=== PATIENT | female | born 1955 | race Caucasian/White ===

== ENCOUNTER 2017-05-23 13:26 | Emergency (ER) | payer OTHER ==
[~2017-05-23] VITALS: Ht 165.1 cm; Wt 92.1 kg
--- NOTE | ~2017-05-23 | HC ---
[facility] [place] [address] CONSULTATION Name: EMILY PLATA Room #: DEP Juno#: [id number] Admission: 05/23/17 Attend Phys: Discharge: 05/23/17 Date of : 59 Report #: [id number] THIS REPORT FOR: //name// CC: Anna Betts PCP TYPE OF REPORT: Infectious diseases consultation. REASON FOR CONSULTATION: I was asked to evaluate concerning peritonitis, abdominal wall ventral hernia, infection with enterocutaneous fistula. HISTORY OF PRESENT ILLNESS: The patient was a 61-year-old who had previous surgery including hysterectomy and oophorectomy, lap band surgery complicated by ventral hernia and herniorrhaphy with mesh placement. 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 She has had approximately 5 abdominal wall surgeries. Most recent exploratory lap showed that the ventral mesh was infected. This was done in [place], [place]. She was then sent for further evaluation. She presents now for her surgery, which was completed [address] Angela. At that time, she had takedown of the enterocutaneous fistula with segmental small bowel resection and explantation of the mesh. Repair of incarcerated ventral hernia, appendectomy with evidence of appendicitis and reconstruction of her abdominal wall with bioabsorbable mesh. Cultures from her wound at the time of surgery have revealed Pseudomonas aeruginosa. She was treated with ciprofloxacin and metronidazole postoperatively. No fever, chills or sweats. GI function has not returned yet. It is noted that during one of her previous surgeries, she had an incidental appendectomy performed. She is a nonsmoker. Works as a nurse instructor. No HIV risk factors. ALLERGIES: PENICILLIN with hives and CODEINE. MEDICATIONS: As noted on her MAR including ciprofloxacin. FAMILY HISTORY: Noncontributory. SOCIAL HISTORY: As noted above. PAST MEDICAL HISTORY: As noted above including lap band procedure, ventral hernia repair, splenectomy, tonsillectomy, oophorectomy and hysterectomy. REVIEW OF SYSTEMS: She has an NG tube in place. Right upper extremity PICC, two JOSE FRANCISCO drains, Prevena incisional dressing. No dysuria. No stools. She has been ambulatory. PHYSICAL EXAMINATION: VITAL SIGNS: Afebrile and hemodynamically stable, alert and cooperative and pleasant, in no acute distress. She had oxygen at 2 liters. NG tube in place. A Prevena wound incisional VAC in place. Two JOSE FRANCISCO drains in the lower abdomen, [facility] [address] [place] [address] CONSULTATION Name: EMILY PLATA Room #: DEP LEANDRA Fraire#: [id number] Admission: 05/23/17 Attend Phys: Discharge: 05/23/17 Date of : 59 Report #: [id number] serosanguineous output and right upper extremity PICC unremarkable. LUNGS: Clear anteriorly. HEART: Regular, without murmur. ABDOMEN: Soft and mild diffuse tenderness. No mass or hepatomegaly identified. EXTREMITIES: Unremarkable. LABORATORY DATA: Sodium 141, potassium 4.3, bicarbonate 30 and creatinine 0.6. Hemoglobin 11.2; platelet count 312,000; white count 8.7; 71% segs and 17% lymphs. Culture of the wound shows Pseudomonas aeruginosa, intermediate sensitivity to aztreonam with an BLANCHE of 4 to ceftazidime, otherwise susceptible. RADIOLOGICAL DATA: Chest x-ray, basilar atelectasis. IMPRESSION: A 61-year old postoperative day #3 following exploratory laparotomy, extensive lysis of adhesions, debridement of infected fascia and explantation of infected mesh with small bowel resection to take down enterocutaneous fistula with a side to side and reanastomosis, appendectomy, abdominal wall reconstruction. She has Pseudomonas aeruginosa infection involving the mesh. Overall stable postop awaiting bowel function return. Allergies to penicillin and codeine. Asplenic. RECOMMENDATIONS: We will continue with meropenem, give predose Benadryl. Duration of antibiotic therapy anticipated 7-10 days. Once GI function returns, may go back to ciprofloxacin to finish her course of treatment. Continue with rehabilitation efforts. For her asplenia, we would recommend updating her vaccinations as appropriate. Discussed further with the patient closer to discharge. <ELECTRONICALLY SIGNED> By: Juan Shipley MD 05/31/17 1128 04 0950 Juan Shipley MD /nt
[2017-05-23 15:16] LABS: ABSOLUTE NEUTROPHILS 4.5 thou/uL (1.4-8.2); BASOPHILS 1.8 % (0.0-2.0); EOSINOPHILS 1.8 % (0.0-3.0); HEMATOCRIT 37.5 % (37.0-47.0); HEMOGLOBIN 12.5 gm/dL (12.0-15.0); LYMPHOCYTES 29.4 % (24.0-44.0); MCH 29.9 pg (26.0-34.0); MCHC 33.3 g/dL (28.0-37.0); MCV 89.8 fL (80.0-100.0); MONOCYTES 9.6 % (1.0-8.0); PLATELET COUNT 351 thou/uL (150-400); POLYS 57.4 % (36.0-66.0); RBC 4.17 mil/uL (4.20-5.00); RDW 14.2 % (10.5-14.5); WBC 7.8 thou/uL (4.0-11.0)
[2017-05-23 15:23] LABS: CALCIUM 9.4 mg/dL (8.5-10.1); CREATININE 0.7 mg/dL (0.6-1.0); POTASSIUM 4.3 mmol/L (3.5-5.1)
[2017-05-23 15:29] LABS: ALBUMIN 3.5 g/dL (3.4-5.0); DIRECT BILIRUBIN 0.1 mg/dL (<0.1-0.3); TOTAL BILIRUBIN 0.5 mg/dL (<0.1-1.0); TOTAL PROTEIN 7.7 g/dL (6.4-8.2)
[2017-05-23 15:48] LABS: URINE BILIRUBIN NEGATIVE (Negative); URINE BLOOD NEGATIVE (Negative); URINE CLARITY CLEAR; URINE COLOR YELLOW; URINE GLUCOSE-RANDOM* NEGATIVE (Negative); URINE KETONES NEGATIVE (Negative); URINE LEUKOCYTES TRACE (Negative); URINE NITRITE NEGATIVE (Negative); URINE PROTEIN (DIPSTICK) NEGATIVE (Negative); URINE SPECIFIC GRAVITY 1.025 (1.005-1.035); URINE UROBILINOGEN 0.2 E.U./dl (0.2-1.0)
[2017-05-23] MEDS ORDERED: GOLYTELY4000 ML PO (17:43)
[2017-05-23] MEDS ORDERED: ONDANSETRON HCL4 M2 PO (17:43)
[2017-05-23] MEDS ORDERED: LEVSIN0.125 MG PO (17:43)
[2017-05-23 17:53] VITALS: BP 153/81
[2017-05-24] MEDS ORDERED: PREVACID 24HR15 MG PO (10:26)
== END 2017-05-23 17:54 | disposition home or self-care (01) ==
LOC: ER 13:26
PROVIDERS: Emergency Medicine
DX: K59.00 Constipation, unspecified (principal); T85.79XA Infection and inflammatory reaction due to other internal prosthetic devices, implants and grafts, initial encounter; R11.0 Nausea; Z88.0 Allergy status to penicillin; Z88.5 Allergy status to narcotic agent; Z98.890 Other specified postprocedural states; Y84.9 Medical procedure, unspecified as the cause of abnormal reaction of the patient, or of later complication, without mention of misadventure at the time of the procedure; Y92.89 Other specified places as the place of occurrence of the external cause

== ENCOUNTER 2017-05-27 05:14 | Inpatient (IN) | payer OTHER ==
[~2017-05-27] VITALS: Ht 165.1 cm; Wt 92.1 kg
--- NOTE | ~2017-05-27 | S ---
[facility] [place] [address] SURGICAL PATH RPT PROCEDURE Name: LA LUCERO Room #: 443-P ADM IN M.R.#: [id number] Admission: 05/28/17 Date of : 59 Discharge: Report #: [id number] Path Case #: [id number] PATHOLOGY REPORT COLLECTION DATE: 05/27/2017 RECEIVED DATE: 05/27/2017 SUBMITTING PHYS: Dr. Afia Angela OTHER PHYS: Dr. Hernan Sinclair, SPECIMEN(S) RECEIVED: A.Appendix B.Distal jejunum stitch villalpando fistula C.Infected mesh D.Fistula tract E.Segment abdominal wall * * * * * * * * * * * * FINAL DIAGNOSIS: A. "Appendix", appendectomy" - Appendix with fibrous obliteration, mild acute serositis and periappendicitis with dense fibrous adhesions. B. "Distal jejunum stitch villalpando fistula", resection: - Small bowel mucosa, submucosa and muscular wall with focal serosal and muscular wall disruption and overlying mucosal reactive changes with edema, acute and chronic inflammation, and subserosal fibroblastic proliferation; surgical margins with mild acute serositis. - Lymph nodes (4) with mild hyperplasia. (4 nodes) C. "Infected mesh", removal: - Foreign material consistent with synthetic mesh (gross examination only). D. "Fistula tract", excision: - Skin and subcutaneous tissue with acute and chronic inflammation, necrosis, granulation tissue, fibrosis, fat necrosis, vascular proliferation and pseudoepitheliomatous hyperplasia consistent with fistula tract. E. "Segment abdominal wall", excision: - Fibroadipose connective tissue with fibrosis, fat necrosis, fresh hemorrhage and acute and chronic inflammation. (CLW:pit; 05/29/2017) PATHOLOGIST: Suni Aggarwal M.D. REPORT ELECTRONICALLY SIGNED BY: Suni Aggarwal M.D. DATE/TIME: 05/29/2017 16:47 * * * * * * * * * * * * [address] [address] SURGICAL PATH RPT PROCEDURE Name: LA LUCERO Room #: 443-P [facility].#: [id number] Admission: 05/28/17 Date of : 59 Discharge: Report #: [id number] Path Case #: [id number] GROSS PATHOLOGY: A. Received in formalin labeled "[place] Luc[place], appendix," is an appendix measuring 6.1 cm in length and up to 0.4 cm in diameter with a moderate amount of attached mesoappendix. The serosal surface is pale santa and smooth in appearance. Sectioning reveals a pinpoint lumen. The specimen is submitted entirely in cassettes A1 through A3, with the proximal margin and bisected tip submitted in cassette A1. B. The specimen is received in formalin labeled "[place], distal jejunum, stitch villalpando fistula". Received is an unoriented segment of small bowel measuring 24.6 cm in length and ranging in diameter from 1.6 to 2.4 cm. Both margins are stapled closed. The serosal surface is pink-santa to pink-hannah in appearance with a moderate amount of overlying adhesions. There is a sutured area located 11.8 cm from the closest margin. The surrounding serosal surface is inked black. The attached mesenteric fat measures up to 3.7 cm in thickness. The specimen is opened along the antimesenteric line to reveal light santa mucosa with normal architectural folds. No distinct nodules or lesions are noted grossly. Sectioning through the attached mesenteric fat reveals four readily identifiable lymph nodes ranging in size from 0.2 to 0.4 cm in maximum dimensions. The specimen is submitted representatively as follows: B1-B2 margin and opposite margin B3 entire sutured area B4 claim representative cross-sections of mucosa B5 intact lymph nodes. C. The specimen is received in formalin labeled "[place] Luc[place], infected mesh". Received is a segment of mesh with attached sutures measuring 23.2 x 8.4 x 0.5 cm in greatest dimensions. A gross photograph is taken. Sections are not submitted. D. The specimen is received in formalin labeled "[place], fistula tract". Received are two segments of yellow-santa fibroadipose tissue with attached dusky hannah-santa skin measuring 8.8 x 4.1 x 3.1 cm in aggregate dimensions. The epidermal surface displays a circular defect measuring 0.2 x 0.2 cm, which probes through the depth of the larger segment of tissue, suggestive of a fistula tract. Sectioning through the specimen reveals white-santa to yellow-santa cut surfaces with a slight amount of fat necrosis. A claim representative section through the fistula tract is submitted in cassette D1. E. The specimen is received in formalin labeled "[place], segment of abdominal wall". Received is a segment of yellow-santa fibroadipose tissue with attached pink-hannah fibromembranous tissue measuring 14.8 x 3.0 x 2.2 cm in greatest dimensions. The specimen is submitted representatively in cassette E1. (CAA; 05/28/2017) CLINICAL HISTORY: [facility] [address] [place] [address] SURGICAL PATH RPT PROCEDURE Name: LA LUCERO Room #: 443-P ADM IN M.R.#: [id number] Admission: 05/28/17 Date of : 59 Discharge: Report #: [id number] Path Case #: [id number] Ventral hernia, small bowel fistula INITIAL CPT CODE(S): A; 74892 B; 26723 C; 00731 D; 74586 E; 75916 [facility] [address] [facility] [place] [address] Technical services performed by [facility] at [address] [place] [address], [address] [address]. [facility] [place] [address] PHONE: [phone] DIRECTOR: Gurvinder Benoit M.D. * * * END OF REPORT * * *
--- NOTE | ~2017-05-27 | O ---
[facility] [place] [address] OPERATIVE REPORT Name: EMILY PLATA Room #: 443-P [facility] M.R.#: [id number] Admission: 05/27/17 Attend Phys: Afia Angela MD, Discharge: Date of : 59 Report #: [id number] THIS REPORT FOR: //name// CC: Dr. Nia Angela NO PCP DATE OF SERVICE: 05/27/2017 PREOPERATIVE DIAGNOSES: 1. Nonhealing abdominal wall wound with draining sinus tract. 2. Suspected infected abdominal wall mesh. 3. Questionable recurrent incisional ventral hernia. 4. Obesity with a BMI of 33.98. POSTOPERATIVE DIAGNOSES: 1. Nonhealing abdominal wall wound with draining sinus tract and enterocutaneous fistula. 2. Infected abdominal wall mesh. 3. Necrotic abdominal wall fascia. 4. Incarcerated recurrent incisional ventral hernia. 5. Appendiceal inflammation. 6. Obesity with a BMI of 33.98. PROCEDURES PERFORMED: 1. Exploratory laparotomy. 2. Extensive lysis of adhesions lasting 115 minutes. 3. Debridement of infected fascia with explantation of infected synthetic mesh. 4. Segmental small bowel resection with takedown of enterocutaneous fistula and [id number] functional end-to-end reanastomosis. 5. Appendectomy. 6. Complex abdominal wall reconstruction with open repair of an incarcerated recurrent incisional ventral hernia using bioresorbable mesh (Phasix). 7. Bilateral component separation of the external oblique aponeurosis of the abdominal wall. 8. Adjacent tissue transfer closure of the anterior abdominal wall tissues ultimately measuring 38 x 35 cm in dimension (1330 square cm). 9. Placement of a topical wound VAC device (Prevena). 10. A modifier 22 procedure for extreme difficulty of procedure secondary to the near 2 hour lysis of adhesions, coupled with her obesity and a thick abdominal wall that made retraction and exposure more difficult. In addition, there was an enterocutaneous fistula that required complete explantation of synthetic mesh and complex abdominal wall reconstruction techniques with component separation for a tension-free midline fascial closure that pushed the total operative time to greater than 3-1/2 hours as opposed to the usual [facility] [address] [address] OPERATIVE REPORT Name: EMILY PLATA Room #: 443-P [facility].#: [id number] Admission: 05/27/17 Attend Phys: Afia Angela MD, Discharge: Date of : 59 Report #: [id number] 60-minute open incisional hernia repair with mesh. SURGEON: Afia Angela MD [employer] MANAGER: Hernan Sinclair DO ANESTHESIA: General endotracheal anesthesia. ESTIMATED BLOOD LOSS: 50 mL. COMPLICATIONS: None appreciated. SPECIMENS: 1. Segment of small bowel to pathology with a suture marking fistula site. 2. Appendix to pathology. 3. Infected mesh to pathology. 4. Necrotic fascia to pathology. 5. Skin to pathology. INDICATIONS: The patient is a 61-year-old obese female who has undergone multiple surgical interventions in her past, starting with a hernia repair in 2014 after a bilateral salpingo-oophorectomy. In addition, the patient has had a prior Lap-Band placement with removal and another hernia repair as well as a sigmoidectomy. Most recently, she underwent an open ventral hernia repair with mesh where she had a draining sinus tract, tunneling to the synthetic mesh, which was therefore by definition infected. As she has had a nonhealing post-surgical wound for all this time with a draining sinus, indication was for exploration today with ultimate findings of what appears to be an enterocutaneous fistula from a loop of small bowel to the mesh and out through the draining wound as well as all of the above procedures necessitated as delineated above. DESCRIPTION OF PROCEDURE: After explaining the risks, benefits and alternatives of the procedure with the patient in detail in the preoperative holding area and obtaining written consent, the patient was brought to the operating room and placed supine on the operating room table. After conducting a thorough timeout procedure, verifying correct patient and procedure, the patient was given general endotracheal anesthesia. Once adequate anesthesia was obtained, her SCDs were hooked up to pneumatic compression device and she was given a preoperative dose of antibiotics in line with the SCIP protocol. The patient had a Matta catheter placed and her abdomen was prepped and draped in standard surgical sterile fashion. A #10 bladed scalpel was used to create a longitudinal midline incision from the subxiphoid location down to the suprapubic location, carried to the left of the umbilicus following her prior incision site. An elliptical incision was made around the draining sinus tract at this time. Electrocautery was used to carry these incisions down through [address] [address] OPERATIVE REPORT Name: EMILY PLATA Room #: 443-P [facility] M.RMaricruz#: [id number] Admission: 05/27/17 Attend Phys: Afia Angela MD, Discharge: Date of : 59 Report #: [id number] skin and subcutaneous tissues to ensure hemostasis until I arrived upon the anterior fascia. The fascia was then scored down the midline revealing evidence of incarcerated recurrent incisional hernia at the inferior aspect of the prior placed synthetic mesh. This was containing omentum. I was able to reduce this, place a finger in the abdomen and open the remainder of the incision in a controlled fashion with a finger in the abdomen to prevent injury from thermal spread. Once I had opened the incision inferiorly, attention was turned towards the superior most aspect. The synthetic mesh itself was bisected at this juncture with curved Singh scissors, carried to the left side of the patient's abdominal domain as there was a matted segment of small bowel to the right of midline. Now that I had opened the entirety of the midline wound, we continued to perform an extensive lysis of adhesions to take down all adhesions of small bowel and omentum from the posterior aspect of the anterior abdominal wall. Once I had taken down all these adhesions and freed the bowel, it was apparent that there was a small enterocutaneous fistula where the bowel was tethered to the underside of the synthetic mesh that was gnarled up and was draining through the wound. A single suture of 3-0 PDS was placed in the small bowel at this location from closure to prevent spillage as well as marking. I continued taking down all adhesions of which there were several interloop adhesions that appeared to be near obstructing in nature as the small bowel was twisting and plastered to the pelvis. Care was taken to elevate all of these adhesions without disrupting the colorectal anastomosis. Once I had taken down all adhesions, which took nearly 2 full hours, the small bowel was evaluated and was healthy with the exception of the enterocutaneous fistula site. The appendix coming off of the cecum was long and serpiginous and quite diminutive with the exception of one area that was bulbous and it did appear inflamed with ____ and edema around it. The appendix was elevated and a window was made in the mesoappendix with a hemostat. The ANNEMARIE-75 mm blue load stapler was used to transect the appendix at its base and Rochester clamps were used to elevate the appendix. The EnSeal X1 device was used to transect the mesoappendix for hemostasis. This was passed off the field as specimen. We now made a window on either side of the small bowel at the fistula site through the mesentery with electrocautery. The bowel was transected at each site with another firing of the blue load 75 mm ANNEMARIE stapler. The mesentery was transected with the EnSeal X1 device for hemostasis. The segment of small bowel was passed off the field as specimen. The small bowel loops were now aligned in a [id number] functional end-to-end fashion. A single suture was placed in the antimesenteric aspect to hold them in alignment and the antimesenteric corners of the staple lines were removed with curved Singh scissors. The ANNEMARIE blue load 75 mm stapler was now used to create the anastomosis by passing each limb of the stapler down the 2 enterotomies, clamping and firing to create the anastomosis. The stapler was removed and the common enterotomy was elevated between Allis clamps. A TX blue load 60 stapler was now used to close the common enterotomy and a #10 bladed scalpel was used to remove the excess anastomotic tissue. Finger palpation of the anastomosis showed it to be widely patent. A single suture of 3-0 PDS was placed in the crotch of the staple line to act as an anti-tension [address] [address] OPERATIVE REPORT Name: EMILY PLATA Room #: 443-P [facility] Juno#: [id number] Admission: 05/27/17 Attend Phys: Afia Angela MD, Discharge: Date of : 59 Report #: [id number] stitch. I then closed the mesenteric defect using a running 3-0 PDS in standard fashion as well. I did elect to oversew the TX staple line using several sutures of 3-0 PDS in standard Lembert interrupted fashion. Again, digital finger intubation showed this to be a widely patent anastomosis. The bowel was then placed back in the abdomen and we turned our attention to the abdominal wall. The mesh itself showed chronic infectious changes with slime and discharge of which culture swabs were taken and sent for aerobic, anaerobic and fungal culture and sensitivity. The abdominal wall fascia itself appeared nonviable and ischemic and necrotic as well as infected down the midline. This was in the region of the enterocutaneous fistula. Electrocautery was now used to remove all of the synthetic mesh as well as all synthetic suture material. Once all of the mesh had been removed, the fascia was debrided back to healthy vascularized fascia and the necrotic fascia was passed off the field as specimen as well. Evaluation of the midline wound at this juncture showed difficulty in approximating down the midline and as such, it would necessitate bilateral component separation. There was evidence of the rectus muscle posteriorly as there was denuded posterior fascia throughout. It was not possible to have a preperitoneal repair and as such, I elected to do an external oblique release with an onlay for definitive repair. I proceeded to score the anterior fascia at the lateral border of the rectus abdominis muscle bilaterally. Once I had scored this, finger was placed through this defect and I opened the entire lateral border of the rectus muscle through the external oblique aponeurosis as far craniocaudal as possible. This gave us excellent medial mobilization of the midline fascia to reapproximate down the midline in a tension-free fashion. The abdomen was irrigated with 1 liter normal saline and it ran clear throughout. It should be noted that upon taking down adhesions, the entire dome of the liver was plastered to the abdominal wall and this was taken down with complete hemostasis. The gallbladder itself was healthy. I felt no evidence of gallstones and it was not inflamed or thickened. I now proceeded to close the midline fascial wound using looped #1 PDS in standard fashion using two separate sutures, the first starting at the inferior aspect and running superior, and the second one from the subxiphoid location, running inferiorly until they met at the midline where they were tied together. Care was taken not to catch a loop of bowel in my suture repair throughout. The subcutaneous space was now irrigated as well and I selected a piece of Phasix bioresorbable mesh that measured 25 x 20 cm in dimension. The mesh was placed in the abdomen and placed in a kamala configuration. It should be noted that large circumferential skin flaps were made externally in order to create the component separation technique and these were elevated, and the mesh was placed so as not to touch skin at any time. A 0 PDS suture was now used to anchor the mesh into place as an onlay with sutures around the periphery of every couple of centimeters as well as placing numerous sutures throughout the innermost portion of the mesh as well. The mesh was tailored with curved Singh scissors appropriately to lie flat on the abdominal wall with no rippling. I also selected 20 mL of Tisseel fibrin sealant glue and sprayed this under the mesh all the way around as well as through the woven mesh at the innermost portion to help weld it to the abdominal [address] [address] OPERATIVE REPORT Name: EMILY PLATA Room #: 443-P [facility] M.R.#: [id number] Admission: 05/27/17 Attend Phys: Afia Angela MD, Discharge: Date of : 59 Report #: [id number] wall. I now performed an adjacent tissue transfer closure of the skin and subcutaneous tissues to arrive at vascularized tissue overlying the abdominal wall. The skin flaps were elevated and relaxing incisions were made internally along the lateral border. This allowed me to medially rotate vascularized pedicles of subcutaneous tissue that were on perforators, that were preserved and arrive at vascularized tissue overlying the mesh throughout. Once this was performed, I closed the abdominal wall in several layers using 3-0 Vicryl in standard interrupted inverted fashion after placing two 19-Romansh round Facundo-Monsivais drains. The drains were placed in the subcutaneous space with the first emanating from the left lower quadrant, crossing low in the pelvis and running up the right gutter. In similar fashion, the other drain emanated from the right lower quadrant, crossed over midline and ran up the left subcutaneous gutter. These were anchored to the skin using 2-0 nylon in standard fashion. Now that the abdominal wall was closed, skin was closed with velma and I placed a topical wound VAC device in standard fashion. An abdominal binder was then placed as well. At the end of the lengthy procedure, all instrument, needle and sponge counts were correct. The patient tolerated the procedure without incident, was awakened in the operating room and transitioned to the recovery room in stable condition with no apparent complications. <ELECTRONICALLY SIGNED> By: Afia Angela MD, FACS 05/28/17 [id number] Afia Angela MD, FACS /nt
[~2017-05-27 05:14] MED LIST: GOLYTELY4000 ML PO; LEVSIN0.125 MG PO; ONDANSETRON HCL4 M2 PO; PREVACID 24HR15 MG PO
[2017-05-27 07:00] VITALS: BP 114/66
[2017-05-27 18:35] VITALS: BP 139/88
[2017-05-27 19:15] VITALS: BP 157/84
[2017-05-27 20:05] VITALS: BP 149/88
[2017-05-28 03:35] VITALS: BP 156/85
[2017-05-28 06:40] LABS: HEMATOCRIT 35.4 % (37.0-47.0); HEMOGLOBIN 11.5 gm/dL (12.0-15.0); MCH 29.8 pg (26.0-34.0); MCHC 32.5 g/dL (28.0-37.0); MCV 91.6 fL (80.0-100.0); RBC 3.87 mil/uL (4.20-5.00); RDW 14.2 % (10.5-14.5); WBC 13.4 thou/uL (4.0-11.0)
[2017-05-28 06:53] LABS: CALCIUM 8.5 mg/dL (8.5-10.1); CREATININE 0.9 mg/dL (0.6-1.0); POTASSIUM 4.9 mmol/L (3.5-5.1)
[2017-05-28 08:00] VITALS: BP 139/70
[2017-05-28 16:00] VITALS: BP 146/77
[2017-05-28 19:18] VITALS: BP 139/66
[2017-05-29 04:14] LABS: ABSOLUTE NEUTROPHILS 9.2 thou/uL (1.4-8.2); BASOPHILS 0.7 % (0.0-2.0); EOSINOPHILS 0.7 % (0.0-3.0); HEMOGLOBIN 10.9 gm/dL (12.0-15.0); LYMPHOCYTES 11.7 % (24.0-44.0); MCH 29.2 pg (26.0-34.0); MCHC 32.1 g/dL (28.0-37.0); PLATELET COUNT 302 thou/uL (150-400); POLYS 79.9 % (36.0-66.0); RBC 3.73 mil/uL (4.20-5.00); RDW 14.5 % (10.5-14.5); WBC 11.5 thou/uL (4.0-11.0)
[2017-05-29 04:17] VITALS: BP 134/63
[2017-05-29 04:18] VITALS: BP 134/62
[2017-05-29 04:22] LABS: CALCIUM 8.3 mg/dL (8.5-10.1); CREATININE 0.7 mg/dL (0.6-1.0); POTASSIUM 4.2 mmol/L (3.5-5.1)
[2017-05-29 08:05] VITALS: BP 139/63
[2017-05-29 11:43] VITALS: BP 131/74
[2017-05-29 15:23] VITALS: BP 148/72
[2017-05-29 19:21] VITALS: BP 152/79
[2017-05-30 00:29] VITALS: BP 143/77
[2017-05-30 04:37] VITALS: BP 166/75
[2017-05-30 06:46] LABS: ABSOLUTE NEUTROPHILS 6.2 thou/uL (1.4-8.2); EOSINOPHILS 3.4 % (0.0-3.0); HEMATOCRIT 34.2 % (37.0-47.0); HEMOGLOBIN 11.2 gm/dL (12.0-15.0); LYMPHOCYTES 17.2 % (24.0-44.0); MCH 29.7 pg (26.0-34.0); MCHC 32.8 g/dL (28.0-37.0); MCV 90.7 fL (80.0-100.0); MONOCYTES 6.8 % (1.0-8.0); PLATELET COUNT 312 thou/uL (150-400); POLYS 71.6 % (36.0-66.0); RBC 3.77 mil/uL (4.20-5.00); WBC 8.7 thou/uL (4.0-11.0)
[2017-05-30 06:50] LABS: CALCIUM 8.6 mg/dL (8.5-10.1); CREATININE 0.6 mg/dL (0.6-1.0); POTASSIUM 4.3 mmol/L (3.5-5.1)
[2017-05-30 09:05] VITALS: BP 153/72
[2017-05-30 19:25] VITALS: BP 142/77
[2017-05-31 04:13] VITALS: BP 146/72
[2017-05-31 08:11] VITALS: BP 151/79
[2017-05-31 10:43] VITALS: BP 160/94
[2017-05-31 15:20] VITALS: BP 151/81
[2017-06-01 06:55] VITALS: BP 149/88
[2017-06-01 08:48] VITALS: BP 143/87
[2017-06-01 15:41] VITALS: BP 141/77
[2017-06-01 19:19] VITALS: BP 147/94
[2017-06-02 03:58] VITALS: BP 119/69
[2017-06-02 07:17] VITALS: BP 132/82
[2017-06-02 17:53] VITALS: BP 122/64
[2017-06-02 20:38] VITALS: BP 156/84
[2017-06-03 03:48] VITALS: BP 136/83
[2017-06-03 07:35] VITALS: BP 129/66
[2017-06-03 08:44] LABS: HEMATOCRIT 34.4 % (37.0-47.0); HEMOGLOBIN 11.5 gm/dL (12.0-15.0); MCH 29.5 pg (26.0-34.0); MCHC 33.3 g/dL (28.0-37.0); MCV 88.7 fL (80.0-100.0); RBC 3.88 mil/uL (4.20-5.00); RDW 13.8 % (10.5-14.5); WBC 7.2 thou/uL (4.0-11.0)
[2017-06-03 08:51] LABS: CREATININE 0.6 mg/dL (0.6-1.0); POTASSIUM 4.3 mmol/L (3.5-5.1)
[2017-06-03 15:53] VITALS: BP 150/84
[2017-06-03 20:26] VITALS: BP 144/95
[2017-06-04 03:49] VITALS: BP 144/84
[2017-06-04 04:37] LABS: HEMATOCRIT 37.2 % (37.0-47.0); HEMOGLOBIN 12.5 gm/dL (12.0-15.0); MCH 29.9 pg (26.0-34.0); MCHC 33.7 g/dL (28.0-37.0); MCV 88.8 fL (80.0-100.0); RBC 4.19 mil/uL (4.20-5.00); RDW 13.7 % (10.5-14.5); WBC 7.3 thou/uL (4.0-11.0)
[2017-06-04 04:45] LABS: CALCIUM 9.3 mg/dL (8.5-10.1); CREATININE 0.7 mg/dL (0.6-1.0); POTASSIUM 4.4 mmol/L (3.5-5.1)
[2017-06-04 07:23] VITALS: BP 145/84
[2017-06-04 15:40] VITALS: BP 140/76
[2017-06-04 19:33] VITALS: BP 129/92
[2017-06-05 03:45] VITALS: BP 118/64
[2017-06-05 07:55] VITALS: BP 135/75
[2017-06-05 12:13] VITALS: BP 130/74
[2017-06-05] MEDS ORDERED: CIPRO500 MG PO (14:29)
[2017-06-05] MEDS ORDERED: SENNA8.6 MG PO (14:31)
[2017-06-05] MEDS ORDERED: ZOFRAN ODT4 MG DISSOLVE (14:31)
[2017-06-05] MEDS ORDERED: TRAMADOL 50 MG50 MG PO (14:31)
[2017-06-05] MEDS ORDERED: CIPRO250 M1 PO (14:33)
[2017-06-05 15:00] VITALS: BP 130/74; BP 133/76
== END 2017-06-05 16:05 | disposition home or self-care (01) | DRG 901 ==
LOC: 4S 05:14 → OR 05:14 → TBA 05:14 → OR 08:21 → 4S 19:11 → OR 05-28 08:42 → 4S 05-28 08:46 → ENTRNSPT 06-05 15:51 → 4S 06-05 16:05
PROVIDERS: Surgery
DX: T85.79XA Infection and inflammatory reaction due to other internal prosthetic devices, implants and grafts, initial encounter (principal); M72.6 Necrotizing fasciitis; K63.2 Fistula of intestine; K43.0 Incisional hernia with obstruction, without gangrene; E66.9 Obesity, unspecified; K36 Other appendicitis; Z68.33 Body mass index [BMI] 33.0-33.9, adult; Z90.710 Acquired absence of both cervix and uterus; Z79.899 Other long term (current) drug therapy; Z88.0 Allergy status to penicillin; Z88.6 Allergy status to analgesic agent; Z79.891 Long term (current) use of opiate analgesic
CPT/HCPCS: 10102; 27000; 50010; 50093; 50101; 50331; 50386; 50455; 50953; 51412; 51435; 51437; 51708; 51712; 54109; 56525; 56527; 56530; 56639; 57092; 62110; 62900; 64031; 70005